=== PATIENT | male | born 1985 | race Caucasian/White ===

== ENCOUNTER 2021-10-04 11:37 | Emergency (ER) | payer SELFPAY ==
[~2021-10-04] VITALS: Ht 167.6 cm; Wt 68.2 kg
[2021-10-04 11:55] VITALS: BP 149/99
--- NOTE | 2021-10-04 12:00 | NUR ---
PT AMBULATED TO ER BED 7
--- NOTE | 2021-10-04 12:05 | NUR ---
PT REPORTED THAT HE WAS GOING OUT TO HIS CAR TO GET HIS ID FROM HIS .
--- NOTE | 2021-10-04 12:15 | NUR ---
PT NEVER RETURNED. PATIENT ELOPED FROM FACILITY. DISCHARGE INSTRUCTIONS NOT GIVEN TO PATIENT. LINO NEAL NOTIFIED.
== END 2021-10-04 12:15 | disposition left against medical advice (07) ==
LOC: MED 11:37
DX: M54.50 Low back pain, unspecified (principal); Z88.6 Allergy status to analgesic agent; Z88.8 Allergy status to other drugs, medicaments and biological substances
CPT/HCPCS: 99281